=== PATIENT | male | born 1945 | race Caucasian/White ===

== ENCOUNTER 2023-11-06 07:39 | Emergency (ER) | payer OTHER ==
[~2023-11-06] VITALS: Ht 172.7 cm; Wt 79.4 kg
[2023-11-06 07:51] VITALS: BP_SYST 169; PULSE 66; RESP 18; TEMP 98.3; O2SAT 97
[2023-11-06 08:37] LABS: BASOPHILS % (AUTO) 0.1 % (0.0-2.0); EOSINOPHILS % (AUTO) 0.4 % (0.0-4.0); HEMATOCRIT 39.3 % (36-54); LYMPHOCYTES # (AUTO) 0.5 K/uL (1.0-5.5); LYMPHOCYTES % (AUTO) 9.5 % (20.5-51.5); MEAN CORPUSCULAR HEMOGLOBIN 31 pg (27-31); MEAN CORPUSCULAR HGB CONC 33 % (32-36); MEAN CORPUSCULAR VOLUME 93 fL (79.0-98.0); MONOCYTES # (AUTO) 0.2 K/uL (0.0-1.0); MONOCYTES % (AUTO) 4.2 % (1.7-9.3); NEUTROPHILS # (AUTO) 4.1 K/uL (1.8-7.7); NEUTROPHILS % (AUTO) 85.8 % (40.0-70.0); PLATELET COUNT (AUTO) 139 K/uL (130-430); RED CELL DISTRIBUTION WIDTH 14.5 % (9.0-15.0); WHITE BLOOD COUNT (AUTO) 4.8 K/uL (4.8-10.8)
[2023-11-06] MEDS: NACL 0.9% 1,000 ML IV ONE (08:37)
[2023-11-06 08:57] LABS: POTASSIUM 4.3 mmol/L (3.5-5.1); UREA NITROGEN, BLOOD 16 mg/dL (8-21)
[2023-11-06 09:10] LABS: ALANINE AMINOTRANSFERASE 53 U/L (12-78); ALBUMIN 3.1 g/dL (3.4-4.8); ANION GAP 9 (5-15); ASPARTATE AMINOTRANSFERASE 49 U/L (10-37); BILIRUBIN,DIRECT 0.2 mg/dL (0.0-0.3); CALCIUM 8.8 mg/dL (8.4-11.0); CARBON DIOXIDE 27 mmol/L (23-29); CHLORIDE 105 mmol/L (98-107); CREATININE 1.18 mg/dL (0.55-1.30); GLUCOSE 108 mg/dL (74-106); SODIUM SERUM 141 mmol/L (136-145); TOTAL BILIRUBIN 0.5 mg/dL (0.0-1.0); TOTAL PROTEIN, SERUM 6.5 g/dL (6.4-8.3)
[2023-11-06] MEDS ORDERED: NIRM1TAB9 PO (09:22)
[2023-11-06] MEDS ORDERED: IBUP-1971 PO (09:24)
[2023-11-06] MEDS ORDERED: ZIT250 PO (09:24)
[2023-11-06 09:27] LABS: PROTHROMBIN TIME 10.8 SECS (9.5-12.5)
[2023-11-06 09:49] LABS: BILIRUBIN,URINE NEGATIVE (NEGATIVE); BLOOD, URINE NEGATIVE (NEGATIVE); CLARITY/URINE CLEAR (CLEAR); COLOR,URINE YELLOW (YELLOW); GLUCOSE,URINE NEGATIVE (NEGATIVE); KETONES,URINE NEGATIVE (NEGATIVE); LEUKOCYTE ESTERASE ,URINE NEGATIVE (NEGATIVE); NITRITE, URINE NEGATIVE (NEGATIVE); PROTEIN URINE 1+ (NEGATIVE); UROBILINOGEN,URINE 0.2 (0.2-1.0)
[2023-11-06 10:03] LABS: BACTERIA,URINE FEW /HPF (None Seen); MUCUS,URINE 1+ /LPF (None Seen); RBC,URINE NONE SEEN /HPF (0-3); WBC,URINE 0-3 /HPF (0-3)
[2023-11-06] MEDS: KETOROLAC TROMETHAMINE 30 MG VIAL IVP ONE (10:05)
[2023-11-06 11:03] VITALS: BP_SYST 169; PULSE 66; RESP 18; TEMP 98.3; O2SAT 97
== END 2023-11-06 11:05 | disposition home or self-care (01) ==
LOC: SED 07:39
DX: U07.1 COVID-19 (principal); Z79.899 Other long term (current) drug therapy; Z79.2 Long term (current) use of antibiotics
CPT/HCPCS: 99284; 96374; 96361; 71045; 80076; 80048; 81001; 85025; 85610; 85730; 87040; 87086; 84484; 36415; 93005; 83605; J1885; J7030; 81000; 81015

== ENCOUNTER 2023-11-15 15:43 | Emergency (ER) | payer OTHER ==
[~2023-11-15] VITALS: Ht 175.3 cm; Wt 79.4 kg
[~2023-11-15 15:43] MED LIST: IBUP-1971 PO; NIRM1TAB9 PO; ZIT250 PO
[2023-11-15 15:49] VITALS: BP_SYST 187; PULSE 57; RESP 18; TEMP 98.3; O2SAT 96
[2023-11-15] MEDS: cloNIDine HCL 0.1 MG TABLET PO ONE (17:08)
[2023-11-15] MEDS: IBUPROFEN 600 MG TABLET PO ONE (17:10)
[2023-11-15] MEDS: ASPIRIN 81 MG TAB.CHEW PO ONE (18:32)
[2023-11-15] MEDS: hydrALAZINE HCL 20 MG/ML VIAL IVP ONE (18:32)
[2023-11-15 18:54] LABS: BASOPHILS % (AUTO) 0.7 % (0.0-2.0); EOSINOPHILS # (AUTO) 0.3 K/uL (0.0-0.4); EOSINOPHILS % (AUTO) 5.1 % (0.0-4.0); HEMATOCRIT 34.2 % (36-54); HEMOGLOBIN 11.7 g/dL (14.0-18.0); LYMPHOCYTES % (AUTO) 16.5 % (20.5-51.5); MEAN CORPUSCULAR HEMOGLOBIN 31 pg (27-31); MEAN CORPUSCULAR HGB CONC 34 % (32-36); MEAN CORPUSCULAR VOLUME 91 fL (79.0-98.0); MONOCYTES # (AUTO) 0.7 K/uL (0.0-1.0); NEUTROPHILS # (AUTO) 4.1 K/uL (1.8-7.7); NEUTROPHILS % (AUTO) 66.7 % (40.0-70.0); PLATELET COUNT (AUTO) 346 K/uL (130-430); RED BLOOD CELL COUNT(AUTO) 3.76 MIL/uL (4.2-6.2); RED CELL DISTRIBUTION WIDTH 14.1 % (9.0-15.0); WHITE BLOOD COUNT (AUTO) 6.1 K/uL (4.8-10.8)
[2023-11-15 19:09] LABS: ANION GAP 8 (5-15); CALCIUM 9.2 mg/dL (8.4-11.0); CARBON DIOXIDE 27 mmol/L (23-29); CHLORIDE 107 mmol/L (98-107); GLUCOSE 89 mg/dL (74-106); POTASSIUM 3.8 mmol/L (3.5-5.1); SODIUM SERUM 142 mmol/L (136-145); UREA NITROGEN, BLOOD 19 mg/dL (8-21)
[2023-11-15] MEDS ORDERED: TETRACAINE HCL/PF 0.5% OPHTHALMIC DROPS 4 ML OP ONE (19:40)
[2023-11-15] MEDS ORDERED: SER25 PO (19:48)
[2023-11-15 20:00] VITALS: BP_SYST 147; PULSE 58; RESP 18; TEMP 97.5; O2SAT 94
[2023-11-16] MEDS ORDERED: ALPR0.25 PO (10:42)
== END 2023-11-15 19:54 | disposition home or self-care (01) ==
LOC: SED 15:43
DX: G47.00 Insomnia, unspecified (principal); R51.9 Headache, unspecified; H57.11 Ocular pain, right eye; I10 Essential (primary) hypertension; Z79.01 Long term (current) use of anticoagulants; Z79.899 Other long term (current) drug therapy
CPT/HCPCS: 99284; 70450; 96374; 71045; 80048; 83880; 85025; 84484; 36415; 93005; 70480; J0360

== ENCOUNTER 2023-11-16 09:03 | Emergency (ER) | payer OTHER ==
[~2023-11-16] VITALS: Ht 175.3 cm; Wt 79.4 kg
[~2023-11-16 09:03] MED LIST changes: +SER25 PO
[2023-11-16 09:08] VITALS: BP_SYST 192; PULSE 64; RESP 20; TEMP 98.3; O2SAT 98
[2023-11-16 09:57] LABS: BASOPHILS % (AUTO) 0.7 % (0.0-2.0); EOSINOPHILS # (AUTO) 0.2 K/uL (0.0-0.4); EOSINOPHILS % (AUTO) 3.9 % (0.0-4.0); HEMATOCRIT 36.3 % (36-54); HEMOGLOBIN 12.2 g/dL (14.0-18.0); LYMPHOCYTES # (AUTO) 0.7 K/uL (1.0-5.5); LYMPHOCYTES % (AUTO) 12.8 % (20.5-51.5); MEAN CORPUSCULAR HEMOGLOBIN 31 pg (27-31); MEAN CORPUSCULAR HGB CONC 34 % (32-36); MEAN CORPUSCULAR VOLUME 91 fL (79.0-98.0); MONOCYTES # (AUTO) 0.5 K/uL (0.0-1.0); NEUTROPHILS # (AUTO) 4.3 K/uL (1.8-7.7); NEUTROPHILS % (AUTO) 74.6 % (40.0-70.0); PLATELET COUNT (AUTO) 376 K/uL (130-430); RED BLOOD CELL COUNT(AUTO) 3.98 MIL/uL (4.2-6.2); RED CELL DISTRIBUTION WIDTH 13.9 % (9.0-15.0); WHITE BLOOD COUNT (AUTO) 5.8 K/uL (4.8-10.8)
[2023-11-16 10:07] LABS: INR 1.1 (0.80-1.20); PROTHROMBIN TIME 11.6 SECS (9.5-12.5)
[2023-11-16 10:11] LABS: ALANINE AMINOTRANSFERASE 29 U/L (12-78); ALBUMIN 2.7 g/dL (3.4-4.8); ANION GAP 6 (5-15); ASPARTATE AMINOTRANSFERASE 27 U/L (10-37); CALCIUM 9.3 mg/dL (8.4-11.0); CARBON DIOXIDE 28 mmol/L (23-29); CHLORIDE 107 mmol/L (98-107); CREATININE 1.01 mg/dL (0.55-1.30); GLUCOSE 100 mg/dL (74-106); POTASSIUM 3.8 mmol/L (3.5-5.1); SODIUM SERUM 141 mmol/L (136-145); TOTAL BILIRUBIN 0.9 mg/dL (0.0-1.0); TOTAL PROTEIN, SERUM 6.3 g/dL (6.4-8.3); UREA NITROGEN, BLOOD 20 mg/dL (8-21)
[2023-11-16 10:14] LABS: BILIRUBIN,DIRECT 0.4 mg/dL (0.0-0.3); CREATINE KINASE, TOTAL 76 U/L (39-308)
[2023-11-16] MEDS ORDERED: ALPR0.25 PO (10:42)
[2023-11-16] MEDS: ALPRAZolam 0.25 MG TABLET PO ONE (11:03)
[2023-11-16 11:09] VITALS: BP_SYST 148; PULSE 60; RESP 16; TEMP 97.8; O2SAT 98
[2023-11-16] MEDS: ONDANSETRON 4 MG ODT TAB PO ONE (11:21)
== END 2023-11-16 11:20 | disposition home or self-care (01) ==
LOC: SED 09:03
DX: F51.5 Nightmare disorder (principal); R51.9 Headache, unspecified; R53.1 Weakness; R06.00 Dyspnea, unspecified; I10 Essential (primary) hypertension; Z79.899 Other long term (current) drug therapy
CPT/HCPCS: 99283; 71045; 80076; 80048; 82550; 83880; 85025; 85610; 85730; 84484; 36415; 93005; Q0162